=== PATIENT | female | born 1990 | race Caucasian/White ===

== ENCOUNTER → 2019-09-25 00:39 | Observation (INO) ==
[2019-09-24 22:55] LABS: Bilirubin,Urine Negative (Negative); Blood,Urine Small (Negative); Clarity,Urine Clear (Clear); Color,Urine Yellow (Yellow); Glucose,Urine (UA) Normal (Normal); Ketones,Urine Negative (Negative); Leukocyte Esterase,Urine Negative (Negative); Nitrite,Urine Negative (Negative); Protein,Urine Negative (Neg-Trace); Specific Gravity,Urine 1.008 (1.010-1.025); Urobilinogen,Urine Normal (Normal)
[2019-09-24 22:57] LABS: Bacteria,Urine None Seen per hpf (None-Few); Hyaline Casts,Urine None Seen per lpf (None-Few); RBC,Urine 0-3 per hpf (0-3); Squamous Epithelial Cell,Urine Many per lpf (None-Few); WBC,Urine 0-3 per hpf (0-3)
[2019-09-24 23:06] LABS: Amphetamine Screen,Urine Negative ng/mL (Cutoff=1000); Barbiturate Screen,Urine Negative ng/mL (Cutoff=200); Benzodiazepines Screen,Urine Negative ng/mL (Cutoff=200); Cannabinoid Screen,Urine Negative ng/mL (Cutoff = 50); Cocaine Screen,Urine Negative ng/mL (Cutoff= 300); Opiate Screen,Urine Negative ng/mL (Cutoff=300); Phencyclidine Screen,Urine Negative ng/mL (Cutoff=25)
[2019-09-25 00:31] LABS: Basophils # 0.1 K/mcL (0.0-0.2); Basophils % 0.5 %; Eosinophils # 0.1 K/mcL (0.0-0.6); Eosinophils % 1.4 %; Hematocrit 31.8 % (35.3-44.9); Hemoglobin 11.7 g/dL (11.5-15.4); Immature Granulocytes % 1.6 % (0-4); Immature Platelets 2.4 % (1.1-6.1); Lymphocytes % 21.2 %; Mean Corpuscular HGB Conc 36.8 g/dL (31.6-35.5); Mean Corpuscular Volume 86.9 fL (83.0-100.0); Mean Platelet Volume 9.2 fL (9.4-12.4); Monocytes # 0.5 K/mcL (0.0-1.3); Monocytes % 5.3 %; Neutrophils # 6.6 K/mcL (1.6-8.9); Platelet Count 235 K/mcL (140-400); Red Blood Count 3.66 M/mcL (3.82-4.97); Red Cell Distribution Width 13.7 % (11.5-14.5); White Blood Count 9.5 K/mcL (4.3-11.1)
== END | disposition home or self-care (01) ==
LOC: 1NENULAB
PROVIDERS: ADMIT Obstetrics & Gynecology; ATTEND Obstetrics & Gynecology

== ENCOUNTER → 2019-12-14 21:26 | Observation (INO) ==
[2019-12-14 20:07] LABS: Bilirubin,Urine Negative (Negative); Blood,Urine Trace (Negative); Clarity,Urine Cloudy (Clear); Color,Urine Yellow (Yellow); Glucose,Urine (UA) Normal (Normal); Ketones,Urine Negative (Negative); Leukocyte Esterase,Urine Small (Negative); Nitrite,Urine Negative (Negative); Protein,Urine Negative (Neg-Trace); Specific Gravity,Urine 1.007 (1.010-1.025); Urobilinogen,Urine Normal (Normal)
[2019-12-14 20:14] LABS: Amphetamine Screen,Urine Negative ng/mL (Cutoff=1000); Bacteria,Urine Few per hpf (None-Few); Barbiturate Screen,Urine Negative ng/mL (Cutoff=200); Benzodiazepines Screen,Urine Negative ng/mL (Cutoff=200); Cannabinoid Screen,Urine Negative ng/mL (Cutoff = 50); Cocaine Screen,Urine Negative ng/mL (Cutoff= 300); Hyaline Casts,Urine None Seen per lpf (None-Few); Opiate Screen,Urine Negative ng/mL (Cutoff=300); Phencyclidine Screen,Urine Negative ng/mL (Cutoff=25); RBC,Urine 0-3 per hpf (0-3); Squamous Epithelial Cell,Urine Many per lpf (None-Few)
== END | disposition home or self-care (01) ==
LOC: 1NENULAB
PROVIDERS: ADMIT Advanced Practice Midwife; ATTEND Advanced Practice Midwife

== ENCOUNTER 2020-01-01 03:54 | Inpatient (IN) ==
[2020-01-01] MEDS ORDERED: Metoclopramide 10 MG/2 ML VIAL IVP PRN (04:14)
[2020-01-01] MEDS ORDERED: Naloxone 0.4 MG/ML INJ IVP PRN (04:14)
[2020-01-01] MEDS ORDERED: Famotidine 20 MG/2 ML VIAL IVP PRN (04:14)
[2020-01-01] MEDS ORDERED: Ondansetron 4 MG/2 ML VIAL IVP PRN (04:14)
[2020-01-01] MEDS ORDERED: Lidocaine 1% 20 ML MDV INFILT PRN (04:14)
[2020-01-01 04:27] LABS: Basophils # 0.1 K/mcL (0.0-0.2); Basophils % 0.6 %; Eosinophils # 0.1 K/mcL (0.0-0.6); Eosinophils % 1.3 %; Hematocrit 37.8 % (35.3-44.9); Hemoglobin 13.4 g/dL (11.5-15.4); Lymphocytes % 20.1 %; Mean Corpuscular HGB Conc 35.4 g/dL (31.6-35.5); Mean Corpuscular Hemoglobin 31.9 pg (28.0-33.3); Mean Platelet Volume 9.4 fL (9.4-12.4); Monocytes # 0.6 K/mcL (0.0-1.3); Monocytes % 5.8 %; Platelet Count 204 K/mcL (140-400); Red Cell Distribution Width 12.3 % (11.5-14.5); Segmented Neutrophils % 69.2 %; White Blood Count 10.1 K/mcL (4.3-11.1)
[2020-01-01 04:34] LABS: Amphetamine Screen,Urine Negative ng/mL (Cutoff=1000); Barbiturate Screen,Urine Negative ng/mL (Cutoff=200); Benzodiazepines Screen,Urine Negative ng/mL (Cutoff=200); Cannabinoid Screen,Urine Negative ng/mL (Cutoff = 50); Cocaine Screen,Urine Negative ng/mL (Cutoff= 300); Opiate Screen,Urine Negative ng/mL (Cutoff=300); Phencyclidine Screen,Urine Negative ng/mL (Cutoff=25)
[2020-01-01] MEDS: miSOPROStoL 25 MCG TABLET PO PRN ×2 (05:11→09:10)
[2020-01-01] MEDS: Ringers Solution, Lactated 1,000 ML IVC SCH ×3 (05:11→15:09)
[2020-01-01] MEDS ORDERED: EPHEDrine 50 MG/ML VIAL IVP PRN (08:01)
[2020-01-01] MEDS ORDERED: *HR* FentaNYL (PF) 100 MCG/2 ML VIAL IVP PRN (10:07)
[2020-01-01] MEDS: Epidural Premix (fent/bupiv) 110 ML EP SCH ×2 (13:54→21:42)
[2020-01-01] MEDS: Oxytocin 20 units/ LR 1000 mL 20 UNIT/1,000 ML BAG IVC SCH (14:49)
[2020-01-01] MEDS ORDERED: D5% in 0.45% NACL 1,000 ML IVC SCH (19:00)
[2020-01-01] MEDS ORDERED: Acetaminophen 325 MG TABLET PO ONE (22:51)
[2020-01-01] MEDS: CeFAZolin 2,000 MG/50 ML BAG IVPB SCH (23:06)
[2020-01-01] MEDS ORDERED: 0.9 % Sodium Chloride 1,000 ML ONE (23:54)
[2020-01-02] MEDS ORDERED: Acetaminophen 325 MG TABLET PO PRN ×2 (04:40→11:14)
[2020-01-02] MEDS: CeFAZolin 2,000 MG/50 ML BAG IVPB SCH (07:29)
[2020-01-02] MEDS ORDERED: Ibuprofen 600 MG TABLET PO ONE (08:50)
[2020-01-02] MEDS: Oxytocin 20 units/ LR 1000 mL 20 UNIT/1,000 ML BAG IVC SCH (09:13)
[2020-01-02] MEDS ORDERED: Benzocaine/Menthol 56 GM AEROSOL SPRAY TP PRN (11:14)
[2020-01-02] MEDS ORDERED: cephALEXin 500 MG CAPSULE PO SCH (11:14)
[2020-01-02] MEDS ORDERED: Acetaminophen 325 MG TABLET PO SCH (11:14)
[2020-01-02] MEDS ORDERED: Oxytocin 20 units/ LR 1000 mL 20 UNIT/1,000 ML BAG IVC SCH ×2 (11:14)
[2020-01-02] MEDS ORDERED: Rho Immune Globulin 1,500 UNIT SYRINGE IM PRN (11:14)
[2020-01-02] MEDS ORDERED: Lanolin 7 G OINT...G. TP PRN (11:14)
[2020-01-02] MEDS ORDERED: Prenatal Vit/FA 1 EACH TABLET PO SCH ×2 (11:14)
[2020-01-02] MEDS ORDERED: *HR* OxyCODONE Immed Rel 5 MG TABLET PO PRN (11:14)
[2020-01-02] MEDS ORDERED: Ondansetron 4 MG/2 ML VIAL IVP PRN (11:14)
[2020-01-02] MEDS ORDERED: Ibuprofen 600 MG TABLET PO SCH (11:14)
[2020-01-02] MEDS ORDERED: metroNIDAZOLE 500 MG TABLET PO SCH (11:14)
[2020-01-02] MEDS ORDERED: Simethicone 80 MG TAB.CHEW PO PRN (11:14)
[2020-01-02] MEDS ORDERED: Rho Immune Globulin 1,500 UNIT SYRINGE IM ONE (11:14)
[2020-01-02] MEDS: cephALEXin 500 MG CAPSULE PO SCH ×2 (14:53→20:17)
[2020-01-02] MEDS: metroNIDAZOLE 500 MG TABLET PO SCH ×2 (14:53→20:17)
[2020-01-02] MEDS: Ibuprofen 600 MG TABLET PO SCH (16:56)
[2020-01-02] MEDS ORDERED: Sennosides 8.6 MG TABLET PO PRN (21:00)
[2020-01-03 06:13] LABS: Basophils # 0.1 K/mcL (0.0-0.2); Basophils % 0.5 %; Eosinophils # 0.2 K/mcL (0.0-0.6); Eosinophils % 1.1 %; Hematocrit 32.2 % (35.3-44.9); Immature Granulocytes % 1.4 % (0-4); Lymphocytes # 1.8 K/mcL (0.6-4.6); Lymphocytes % 11.8 %; Mean Corpuscular HGB Conc 35.4 g/dL (31.6-35.5); Mean Corpuscular Hemoglobin 32.8 pg (28.0-33.3); Mean Corpuscular Volume 92.5 fL (83.0-100.0); Mean Platelet Volume 9.6 fL (9.4-12.4); Monocytes # 0.6 K/mcL (0.0-1.3); Monocytes % 3.8 %; Neutrophils # 12.4 K/mcL (1.6-8.9); Platelet Count 168 K/mcL (140-400); Red Blood Count 3.48 M/mcL (3.82-4.97); Red Cell Distribution Width 12.5 % (11.5-14.5); Segmented Neutrophils % 81.4 %
[2020-01-03 06:14] LABS: Hemoglobin 11.4 g/dL (11.5-15.4); White Blood Count 15.2 K/mcL (4.3-11.1)
[2020-01-03] MEDS: Ibuprofen 600 MG TABLET PO SCH (06:57)
[2020-01-03] MEDS: cephALEXin 500 MG CAPSULE PO SCH (09:28)
[2020-01-03] MEDS: metroNIDAZOLE 500 MG TABLET PO SCH (09:28)
[2020-01-03 14:04] VITALS: BP 113/64
== END 2020-01-03 14:05 | disposition home or self-care (01) | DRG 560 ==
LOC: 1NENULAB 03:54 → 1NENUOBS 01-02 10:53
PROVIDERS: ADMIT Obstetrics & Gynecology; ATTEND Obstetrics & Gynecology